=== PATIENT | female | born 1955 | race Caucasian/White ===

== ENCOUNTER → 2016-08-14 | Outpatient (CLI) | payer BC ==
--- NOTE | 2016-08-14 13:30 | REP ---
COMPLETE ABDOMINAL SONOGRAPHY: HISTORY: Polycythemia. FINDINGS: Scanning through the right upper quadrant of the abdomen demonstrates a normal sized thin walled gallbladder without evidence of stone or polyp. Common bile duct is normal measuring 0.6 cm in greatest diameter. No focal liver lesion is seen. Liver is not felt to be enlarged. A normal caliber aorta is seen with atherosclerotic ectasia and irregularity. No aneurysm is seen. No evidence of ascites is noted in the upper abdomen. Scanning in the left upper quadrant shows a homogenous normal size spleen with a maximum dimension of 9.7 cm. Pancreas is unremarkable. Renal cortical echogenicity pattern is normal and contours are smooth on both sides. Right renal dimensions are 11.6 x 5.8 x 4.7 cm. The left kidney measures 10.7 x 4.0 x 4.7 cm. IMPRESSION: Atherosclerotic changes in the abdominal aorta. Otherwise negative complete abdominal sonography. No evidence of hepatic or splenic enlargement. Signed by Lamonte Gil MD 08/14/2016 04:34 P
== END ==
LOC: M RAD 07:50
PROVIDERS: ATTEND Internal Medicine Medical Oncology
DX: D75.1 Secondary polycythemia (principal); I70.0 Atherosclerosis of aorta

== ENCOUNTER → 2017-03-08 | Outpatient (CLI) | payer BC ==
--- NOTE | 2017-03-08 15:32 | REP ---
HISTORY: Palpable clinical thyromegaly. COMPARISON: None. The right lobe of the thyroid gland measures 4.2 x 1.4 x 1.4 and the left lobe measures 4.1 x 1.1 x 1 cm. The isthmus measures 2 mm. In the right lobe of the thyroid gland, there is a 4.8 x 2.7 x 3.7 mm sized complex nodule. The thyroid echo pattern is heterogenous bilaterally. IMPRESSION: Tiny right lobed nodule and other findings as described above. Signed by Feroz Mosher DO 03/08/2017 04:49 P
== END ==
LOC: M RAD 13:10
PROVIDERS: ATTEND Nurse Practitioner Family
DX: E04.1 Nontoxic single thyroid nodule (principal)

== ENCOUNTER → 2017-03-12 | Outpatient (REF) | payer BC ==
[2017-03-12 13:57] LABS: MEAN CORPUSCULAR HEMOGLOBIN 33.4 pg (27.0-33.0); MEAN CORPUSCULAR VOLUME 98.3 fl (80.0-96.0); RED CELL DISTRIBUTION WIDTH 13.3 % (11.5-14.5); WHITE BLOOD COUNT 5.7 K/mm3 (4.0-10.0)
[2017-03-12 14:24] LABS: ALBUMIN 3.5 GM/DL (3.2-5.2); ALBUMIN/GLOBULIN RATIO 1.09 (1.00-1.93); ALKALINE PHOSPHATASE 64 U/L (45-117); ALT/SGPT 89 U/L (12-78); ANION GAP 6 MEQ/L (8-16); AST/SGOT 61 U/L (15-37); BILIRUBIN,TOTAL 0.9 MG/DL (0.2-1.0); BLOOD UREA NITROGEN 17 MG/DL (7-18); CALCIUM LEVEL 9.2 MG/DL (8.8-10.2); CARBON DIOXIDE LEVEL 30 MEQ/L (21-32); CHLORIDE LEVEL 104 MEQ/L (98-107); CHOLESTEROL LEVEL 274 MG/DL (<200); CREATININE FOR GFR 0.82 MG/DL (0.55-1.02); FREE T4 1.05 NG/DL (0.76-1.46); GLOMERULAR FILTRATION RATE > 60.0 (>45); GLUCOSE, FASTING 96 MG/DL (80-110); POTASSIUM SERUM 4.3 MEQ/L (3.5-5.1); SODIUM LEVEL 140 MEQ/L (136-145); TOTAL PROTEIN 6.7 GM/DL (6.4-8.2); TRIGLYCERIDES LEVEL 221 MG/DL (<150)
== END ==
LOC: M LABDRAW1 13:07
PROVIDERS: ATTEND Nurse Practitioner Family
DX: E55.9 Vitamin D deficiency, unspecified (principal); E78.5 Hyperlipidemia, unspecified; I10 Essential (primary) hypertension; E04.9 Nontoxic goiter, unspecified

== ENCOUNTER → 2017-12-16 | Outpatient (CLI) | payer BC | LOC: M RAD 08:18 | DX: E04.1 Nontoxic single thyroid nodule (principal) | CPT/HCPCS: 76536 ==

== ENCOUNTER → 2018-06-11 | Outpatient (REF) | payer BC ==
[2018-06-11 11:35] LABS: BASO # 0.1 10^3/uL (0.0-0.2); BASO % 0.9 % (0.0-1.0); EOS # 0.1 10^3/uL (0.0-0.50); EOS % 1.4 % (0.0-3.0); HEMATOCRIT 48.9 % (36.0-47.0); HEMOGLOBIN 16.8 g/dl (12.0-15.5); IMMATURE GRANULOCYTE % 0.2 % (0-3.0); LYMPH # 1.5 10^3/uL (1.5-4.5); MEAN CORPUSCULAR HEMOGLOBIN 33.1 pg (27.0-33.0); MEAN CORPUSCULAR HGB CONC 34.4 g/dl (32.0-36.5); MEAN CORPUSCULAR VOLUME 96.4 fl (80.0-96.0); MONO # 0.4 10^3/uL (0.0-0.8); MONO % 7.2 % (0.0-5.0); NEUTROPHILS # 3.5 10^3/uL (1.8-7.7); NEUTROPHILS % 63.3 % (36.0-66.0); PLATELET COUNT, AUTOMATED 119 10^3/uL (150-450); RED BLOOD COUNT 5.07 10^6/uL (4.00-5.40); RED CELL DISTRIBUTION WIDTH 13.7 % (11.5-14.5); WHITE BLOOD COUNT 5.6 10^3/uL (4.0-10.0)
== END ==
LOC: M LABDRAW1 10:33
DX: D75.1 Secondary polycythemia (principal)
CPT/HCPCS: 85027

== ENCOUNTER → 2018-08-06 | Outpatient (CLI) | payer BC ==
[~2018-08-06] MED LIST: ASPI1TAB PO; ZYRTTAB8 PO
--- NOTE | 2018-08-06 11:44 | REP ---
Clinical: Lung screening. History nicotine dependence. Comparison: None Technique: Axial low-dose noncontrast images from the thoracic inlet to the upper abdomen using lung screening technique. Findings: The lung carrlilo are well-aerated. No consolidation, significant nodule or mass lesion is appreciated. No pleural effusion/reaction or pneumothorax. Tracheobronchial tree is patent. Mediastinum demonstrates mild atherosclerotic changes of the coronary arteries without cardiomegaly. Impression: Lung-RADS category I. No nodule or suspicious abnormality. Recommendations include annual low-dose CT evaluation. Electronically Signed by Gino Harris MD 08/06/2018 11:35 A
== END ==
LOC: M RAD 10:45
PROVIDERS: ATTEND Internal Medicine Medical Oncology
DX: Z12.2 Encounter for screening for malignant neoplasm of respiratory organs (principal); Z87.891 Personal history of nicotine dependence

== ENCOUNTER → 2018-12-31 | Outpatient (CLI) | payer BC, MEDICARE ==
[~2018-12-31] MED LIST changes: -ASPI1TAB PO; +ASPI81TA26 PO; +ZYLO300T6 PO
--- NOTE | 2018-12-31 17:42 | REP ---
Clinical: Nontoxic nodule. Technique: Real time lynn scale and color evaluation using linear high frequency transducer. Comparison: 12/16/2017 Findings: Right lobe measures 4.3 x 1.6 x 1.3 cm and includes stable appearing 7 x 3 x 5 mm cystic nodule. Left lobe measures 3.9 x 1.1 x 0.9 cm without nodule or cyst. Isthmus measures 2.4 mm in width. Impression: Stable 7 mm complex nodule in the right lobe is otherwise nonspecific by ultrasound. Electronically Signed by Gnio Harris MD 12/31/2018 05:33 P
== END ==
LOC: M RAD 13:55
PROVIDERS: ATTEND Otolaryngology
DX: E04.1 Nontoxic single thyroid nodule (principal)

== ENCOUNTER → 2019-06-19 | Outpatient (REF) | payer MEDICARE ==
[2019-06-19 13:50] LABS: BASO % 0.6 % (0.0-1.0); EOS # 0.1 10^3/uL (0.0-0.5); HEMATOCRIT 46.6 % (36.0-47.0); HEMOGLOBIN 15.4 g/dl (12.0-15.5); LYMPH # 1.3 10^3/uL (1.5-5.0); LYMPH % 18.8 % (24.0-44.0); MEAN CORPUSCULAR HEMOGLOBIN 33.1 pg (27.0-33.0); MEAN CORPUSCULAR VOLUME 100.2 fl (80.0-96.0); MONO # 0.4 10^3/uL (0.0-0.8); MONO % 6.4 % (0.0-5.0); NEUTROPHILS # 4.9 10^3/uL (1.5-8.5); NEUTROPHILS % 72.9 % (36.0-66.0); PLATELET COUNT, AUTOMATED 209 10^3/uL (150-450); RED BLOOD COUNT 4.65 10^6/uL (4.00-5.40); WHITE BLOOD COUNT 6.8 10^3/uL (4.0-10.0)
[2019-06-19 13:56] LABS: ALBUMIN 3.4 GM/DL (3.2-5.2); ALT/SGPT 34 U/L (12-78); BILIRUBIN,DIRECT 0.2 MG/DL (0.0-0.2); BILIRUBIN,TOTAL 0.7 MG/DL (0.2-1.0); BLOOD UREA NITROGEN 13 MG/DL (7-18); CHOLESTEROL LEVEL 235 MG/DL (<200); CHOLESTEROL RISK RATIO 4.519 (<5); CREATININE FOR GFR 0.74 MG/DL (0.55-1.30); FERRITIN 56 NG/ML (8-252); GLOMERULAR FILTRATION RATE > 60.0 (>45); HDL CHOLESTEROL 52 MG/DL (>40); IRON (FE) 67 UG/DL (50-170); LDL CHOLESTEROL 153 MG/DL (<100); NON-HDL-C 183 MG/DL; PERCENT SATURATION 17.8 % (13.2-45.0); TOTAL IRON BINDING CAPACITY 376 UG/DL (250-450); TOTAL PROTEIN 6.9 GM/DL (6.4-8.2); TRIGLYCERIDES LEVEL 152 MG/DL (<150)
[2019-06-19 14:02] LABS: HEPATITIS B SURFACE ANTIBODY NEGATIVE (POSITIVE)
== END ==
LOC: M LABDRAW1 12:50
PROVIDERS: ATTEND Internal Medicine Gastroenterology
DX: R94.5 Abnormal results of liver function studies (principal); Z79.899 Other long term (current) drug therapy

== ENCOUNTER → 2019-12-28 | Outpatient (CLI) | payer MEDICARE ==
[~2019-12-28] MED LIST changes: +EQL50TAB2 PO
--- NOTE | 2019-12-28 14:22 | REP ---
REASON: Followup 7-mm sized cystic nodule in the right lobe. The right lobe of the thyroid gland measures 4.3 x 1.4 x 1.1 cm and the left lobe measures 3.6 x 1.1 x 0.8 cm. The isthmus measures between 2 and 3 mm. The thyroid parenchymal echopattern is unchanged. Once again, there is a complex subcentimeter sized nodule in the right lobe of the thyroid gland, which is unchanged. IMPRESSION: Stable exam. Electronically Signed by Feroz Mosher DO 12/28/2019 03:51 P
== END ==
LOC: M RAD 11:07
PROVIDERS: ATTEND Otolaryngology
DX: E04.1 Nontoxic single thyroid nodule (principal)

== ENCOUNTER → 2020-06-21 | Outpatient (CLI) | payer MEDICARE ==
--- NOTE | 2020-06-21 15:49 | REP ---
INDICATION: LUNG CA SCREENING STUDY. COMPARISON: Screening CT 08/06/2018, chest x-ray 11/29/2014 TECHNIQUE: Standard low-dose screening CT protocol FINDINGS: The lung carrillo remain well inflated. I see no pleural thickening, calcified pleural plaque or pleural based mass. There is no acute infiltrate. No parenchymal lung nodules are seen. There is some minor curvilinear fibro atelectatic change in the inferior lingular segment of the left upper lobe and it is adjacent to the epicardial fat pad at the left heart border. No widening of mediastinum. Calcifications of the aortic wall are mild. Few coronary calcifications again seen. Marginal osteophytes in the spine without destructive lesion or visible fracture. IMPRESSION: 1. Lung-RADS category 1, negative. No suspicious finding. Follow-up with annual low-dose lung CT screening for patient at high risk of lung malignancy. <Electronically signed by Joe Clay > 06/21/20 1983
== END ==
LOC: M RAD 14:08
PROVIDERS: ATTEND Internal Medicine Medical Oncology
DX: F17.218 Nicotine dependence, cigarettes, with other nicotine-induced disorders (principal); Z12.2 Encounter for screening for malignant neoplasm of respiratory organs

== ENCOUNTER → 2021-06-28 | Outpatient (CLI) | payer MEDICARE ==
--- NOTE | 2021-06-28 10:31 | REP ---
INDICATION: SMOKER COMPARISON: 06/21/2020 TECHNIQUE: Axial noncontrast images from the thoracic inlet to the upper abdomen using low-dose lung screening technique (LDCT). FINDINGS: Lung carrillo are relatively well aerated and symmetric. No suspicious consolidation, nodule or mass lesion. Very subtle areas of ground-glass opacity which are nonspecific identified at the right base which may represent progressive chronic change. No effusion. No pneumothorax. Tracheobronchial tree is patent. Mediastinum is stable. IMPRESSION: As above. No suspicious nodule or mass. Lung-RADS category 1. Management recommendations include annual low-dose CT surveillance. <Electronically signed by Gino Harris > 06/28/21 1027
== END ==
LOC: M RAD 08:20
PROVIDERS: ATTEND Internal Medicine Medical Oncology
DX: Z87.891 Personal history of nicotine dependence (principal)

== ENCOUNTER → 2021-07-03 | Outpatient (REF) | payer MEDICARE ==
[2021-07-03 10:32] LABS: BASO % 0.5 % (0.0-1.0); EOS % 0.5 % (0.0-3.0); HEMATOCRIT 50.3 % (36.0-47.0); HEMOGLOBIN 17.1 g/dl (12.0-15.5); LYMPH # 1.1 10^3/uL (1.5-5.0); LYMPH % 14.9 % (24.0-44.0); MEAN CORPUSCULAR HEMOGLOBIN 32.8 pg (27.0-33.0); MEAN CORPUSCULAR VOLUME 96.4 fl (80.0-96.0); MONO # 0.4 10^3/uL (0.0-0.8); MONO % 5.3 % (2.0-8.0); NEUTROPHILS # 5.7 10^3/uL (1.5-8.5); NEUTROPHILS % 78.5 % (36.0-66.0); PLATELET COUNT, AUTOMATED 169 10^3/uL (150-450); RED BLOOD COUNT 5.22 10^6/uL (4.00-5.40); WHITE BLOOD COUNT 7.3 10^3/uL (4.0-10.0)
[2021-07-03 11:05] LABS: ALBUMIN 3.4 GM/DL (3.2-5.2); ALT/SGPT 44 U/L (12-78); BLOOD UREA NITROGEN 15 MG/DL (7-18); CALCIUM LEVEL 9.5 MG/DL (8.8-10.2); CARBON DIOXIDE LEVEL 30 MEQ/L (21-32); CHLORIDE LEVEL 104 MEQ/L (98-107); CHOLESTEROL LEVEL 307 MG/DL (<200); CHOLESTEROL RISK RATIO 5.685 (<5); CREATININE FOR GFR 0.77 MG/DL (0.55-1.30); FREE T4 1.13 NG/DL (0.76-1.46); GLOMERULAR FILTRATION RATE > 60.0 (>45); GLUCOSE, FASTING 104 MG/DL (70-100); HDL CHOLESTEROL 54 MG/DL (>40); LDL CHOLESTEROL 216 MG/DL (<100); NON-HDL-C 253 MG/DL; POTASSIUM SERUM 4.1 MEQ/L (3.5-5.1); SODIUM LEVEL 140 MEQ/L (136-145); TOTAL PROTEIN 7.3 GM/DL (6.4-8.2); TRIGLYCERIDES LEVEL 184 MG/DL (<150)
== END ==
LOC: M LAB REF 10:11
PROVIDERS: ATTEND Physician Assistant Medical
DX: R53.83 Other fatigue (principal); I10 Essential (primary) hypertension; E78.2 Mixed hyperlipidemia

== ENCOUNTER 2022-01-25 14:48 | Outpatient (CLI) | payer MEDICARE | END 2022-01-25 15:56 | disposition home or self-care (01) | LOC: M LAB 14:48 → M 4MAIN 14:55 → M LAB 15:56 | DX: C92.00 Acute myeloblastic leukemia, not having achieved remission (principal) ==

== ENCOUNTER 2022-01-26 08:58 | Outpatient (CLI) | payer MEDICARE ==
[~2022-01-26] VITALS: Ht 165.1 cm; Wt 57.0 kg
[2022-01-26 10:01] VITALS: BP 150/67
[2022-01-26 10:26] VITALS: BP 137/63
[2022-01-26 10:41] VITALS: BP 129/74
[2022-01-26 11:19] VITALS: BP 131/66
[2022-01-26 11:56] VITALS: BP 127/71
[2022-01-26 12:57] VITALS: BP 138/70
== END 2022-01-26 13:18 | disposition home or self-care (01) ==
LOC: M OPCLI4 08:58 → M 4MAIN 09:05 → M OPCLI4 13:18
PROVIDERS: ATTEND Physician Assistant Medical
DX: C92.00 Acute myeloblastic leukemia, not having achieved remission (principal)
CPT/HCPCS: 36430; P9040